=== PATIENT | female | born 1965 | race Caucasian/White ===

== ENCOUNTER 2018-09-29 17:02 | Emergency (ER) | payer OTHER, MEDICAID ==
[2018-09-30] MEDS: FLUORESCEIN STRIP RIGHT EYE (02:08)
[2018-09-30] MEDS: TETRACAINE 0.5% 4 ML OPH RIGHT EYE (02:08)
[2018-09-30] MEDS: OPHTHALMIC IRRIG SOLUTION 120 ML RIGHT EYE (02:47)
== END 2018-09-30 03:30 | disposition home or self-care (01) ==
LOC: FTE 17:02
DX: H57.89 Other specified disorders of eye and adnexa (principal)
CPT/HCPCS: 99283; Z7502